=== PATIENT | male | born 1970 | race African-American/Black ===

== ENCOUNTER 2019-02-10 10:18 | Outpatient (CLI) | payer OTHER ==
--- NOTE | 2019-02-10 10:58 | XRay Report ---
CHEST 2 VIEWS INDICATION / CLINICAL INFORMATION: R07.9 CHEST PAIN. COMPARISON: None available. FINDINGS: SUPPORT DEVICES: None. HEART / MEDIASTINUM: No significant abnormality. LUNGS / PLEURA: No significant pulmonary or pleural abnormality. No pneumothorax. ADDITIONAL FINDINGS: No significant additional findings. IMPRESSION: 1. No acute findings. Signer Name: Isra Decker MD Signed: 02/10/2019 10:54 AM Workstation Name: [id number]
== END 2019-02-10 10:19 | disposition home or self-care (01) ==
LOC: XRAY 10:18
DX: R07.9 Chest pain, unspecified (principal)
CPT/HCPCS: 71046